=== PATIENT | female | born 1955 | race Caucasian/White ===

== ENCOUNTER 2017-09-17 21:27 | Observation (INO) | payer BC ==
[2017-09-17] MEDS ORDERED: 0.9 % SODIUM CHLORIDE 1,000 ML BAG IV ONE (21:37)
[2017-09-17] MEDS ORDERED: MORPHINE SULFATE 5 MG/ML PFS IVP ONE ×2 (21:38→22:58)
[2017-09-17] MEDS ORDERED: ONDANSETRON HCL IV 4 MG/2 ML VIAL IVP ONE (21:38)
[2017-09-17] MEDS ORDERED: ACETAMINOPHEN 1,000 MG/100 ML BTL IVPB ONE (21:43)
--- NOTE | 2017-09-17 21:44 | Emergency Department Record ---
History of Present Illness - General Chief Complaint: Abdominal Pain Stated Complaint: ABDOMINAL PAIN,CANT EAT Time Seen by Provider: 09/17/17 21:34 Source: Patient, EMS Mode of Arrival: Stretcher Limitations: No limitations - History of Present Illness Initial Comments: 62 yo female presents with abdominal pain that started yesterday morning. She pain was mild yesterday and she reports she just felt bloated. The pain has increased with nausea, vomiting and now it is primarily in the RLQ. No fever. TMAX of 99. She reports years ago she had exploratory surgery. She reports she still has her appendix and gallbladder. PCP is Alice Grant at [facility]. No hematuria or dysuria. MD Complaint: Abdominal pain -: Days(s) (2) Location: RLQ Radiation: RLQ Migration to: RLQ Severity: Severe Quality: Aching, Sharp, Stabbing Consistency: Constant Improves With: Nothing Associated Symptoms: Anorexia - Related Data Patient : No Allergies Allergy/AdvReac Type Severity Reaction Status Date / Time No Known Drug Allergies Allergy Unverified 04/30/17 10:39 Review of Systems Constitutional: Denies: Chills, Fever, Malaise, Weakness Eyes: Denies: Eye discharge ENT: Denies: Congestion, Throat pain Respiratory: Denies: Cough, Dyspnea, Hemoptysis, Stridor, Wheezes Cardiovascular: Denies: Chest pain, Palpitations, Syncope Endocrine: Denies: Fatigue, Polydipsia, Polyuria Gastrointestinal: Reports: As per HPI, Abdominal pain, Nausea, Vomiting. Denies : Diarrhea Genitourinary: Denies: Dysuria, Frequency, Urgency Musculoskeletal: Denies: Arthralgia, Back pain, Neck pain Skin: Denies: Bruising, Change in color, Rash Neurological: Denies: Headache, Numbness, Weakness Psychiatric: Denies: Anxiety Hematological/Lymphatic: Denies: Blood Clots, Easy bleeding, Easy bruising, Swollen glands Physical Exam - General General Appearance: Alert, Oriented x3, Cooperative, No acute distress Limitations: No limitations - Head Head exam: Atraumatic, Normocephalic, Normal inspection - Eye Eye exam: Normal appearance. negative: Conjunctival injection, Scleral icterus - ENT ENT exam: Normal exam, Mucous membranes moist Ear exam: Normal external inspection Nasal Exam: Normal inspection Mouth exam: Normal external inspection Teeth exam: Normal inspection Throat exam: Normal inspection - Neck Neck exam: Normal inspection, Full ROM. negative: Tenderness - Respiratory Respiratory exam: Normal lung sounds bilaterally. negative: Respiratory distress - Cardiovascular Cardiovascular Exam: Regular rate, Normal rhythm, Normal heart sounds - GI/Abdominal GI/Abdominal exam: Soft, Guarding, Tenderness (RLQ is tender with some guarding , the remainder of the abdomen remains very soft and non tender). negative: Distended - Rectal Rectal exam: Deferred - exam: Deferred - Extremities Extremities exam: Normal inspection, Full ROM, Normal capillary refill. negative: Tenderness - Back Back exam: Reports: Normal inspection, Full ROM. Denies: CVA tenderness (R), CVA tenderness (L), Muscle spasm, Tenderness - Neurological Neurological exam: Alert, Normal gait, Oriented X3 - Psychiatric Psychiatric exam: Normal affect, Normal mood - Skin Skin exam: Dry, Intact, Normal color, Warm Course - Reevaluation(s) Reevaluation #1: 09/17/17 21:44 Vitals reviewed. Temp 100.9 09/17/17 22:19 The CBC was reviewed. WBC is 11.5 09/17/17 22:37 The CMP was reviewed No acute changes except K is 2.9 09/18/17 00:20 CT is consistent with acute appendicitis. 09/18/17 00:26 I GABRIELA Paniagua The patient will be admitted to the hospital for hydration, IV antibiotics and plan for OR time. Medical Decision Making - Lab Data Result diagrams: 09/17/17 21:50 09/17/17 21:50 Disposition Disposition: Admit Clinical Impression: Abdominal pain Qualifiers: Abdominal location: right lower quadrant Qualified Code(s): R10.31 - Right lower quadrant pain Appendicitis Qualifiers: Appendicitis type: acute appendicitis Acute appendicitis type: unspecified acute appendicitis type Qualified Code(s): K35.80 - Unspecified acute appendicitis Disposition: Still a Patient at [facility] Decision to Admit: Admit from ER Decision to Admit Date: 09/18/17 Decision to Admit Time: 00:27 Condition: (2) Stable Forms: Patient Portal Access Time of Disposition: 00:25 Quality - Quality Measures Quality Measures: N/A - Blood Pressure Screening Does Patient Have Any of the Following: No Blood Pressure Classification: Pre-Hypertensive BP Reading Systolic Measurement: 142 Diastolic Measurement: 86 Screening for High Blood Pressure: < Pre-Hypertensive BP, F/U Documented > [ [id number]] Pre-Hypertensive Follow-up Interventions: Referral to alternative/primary care provider.
[2017-09-17 22:06] LABS: BASO % 0.1 % (0-6); EOS % 0.3 % (0-6); HEMATOCRIT 37.5 % (35.0-47.0); HEMOGLOBIN 12.6 gm/dl (11.6-16.0); LYMPH % 7.4 % (16-45); MEAN CELL VOLUME 92.8 fl (81-97); MEAN CORPUSCULAR HEMOGLOBIN 31.2 pg (27-33); MEAN CORPUSCULAR HGB CONC 33.6 g/dl (32-36); MEAN PLATELET VOLUME 10.2 fl (7.4-10.4); MONO % 4.8 % (0-9); PLATELET COUNT 272 K/uL (130-400); RED BLOOD COUNT 4.04 M/uL (3.80-5.40); RED CELL DISTRIBUTION WIDTH 12.9 % (11.5-14.5); WHITE BLOOD COUNT W/O DIFF 11.5 K/uL (4.2-12.2)
[2017-09-17 22:18] LABS: BLOOD UREA NITROGEN 24 mg/dL (8-23); CREATININE 0.8 mg/dL (0.5-0.9); EST GLOMERULAR FILTRATION RATE > 60 mL/min
[2017-09-17 22:19] LABS: TOTAL PROTEIN 7.7 g/dL (6.6-8.7)
[2017-09-17 22:21] LABS: GLUCOSE,RANDOM 154 mg/dL (74-109)
[2017-09-17 22:23] LABS: ALT/SGPT 20 U/L (<33)
[2017-09-17 22:24] LABS: ALBUMIN 4.1 g/dL (4.0-5.0); ALKALINE PHOSPHATASE 79 U/L (35-104); AST/SGOT 11 U/L (10.0-35.0); BILIRUBIN,DIRECT 0.2 mg/dL (0-0.3); LIPASE 42 U/L (13-60)
[2017-09-17] MEDS ORDERED: SOD CHLOR 0.9% WITH KCL 40MEQ 40 MEQ/1,000 ML IV.SOLN IV ONE (22:33)
[2017-09-17 23:44] LABS: URINE APPEARANCE CLEAR; URINE BILIRUBIN NEGATIVE (NEGATIVE); URINE BLOOD NEGATIVE (NEGATIVE); URINE COLOR YELLOW; URINE GLUCOSE (UA) NEGATIVE (NEGATIVE); URINE KETONE NEGATIVE (NEGATIVE); URINE LEUKOCYTE ESTERASE NEGATIVE (NEGATIVE); URINE NITRITE NEGATIVE (NEGATIVE); URINE PROTEIN NEGATIVE (NEGATIVE); URINE UROBILINOGEN 0.2 E.U./dL (0.20 - 1.00)
[2017-09-18] MEDS ORDERED: ERTAPENEM SODIUM 1 G in 0.9 % SODIUM CHLORIDE 100ML 100 ML IVPB ONE (00:20)
[2017-09-18] MEDS ORDERED: ONDANSETRON HCL IV 4 MG/2 ML VIAL IVP PRN (00:27)
[2017-09-18] MEDS ORDERED: ERTAPENEM SODIUM 1 G in 0.9 % SODIUM CHLORIDE 100ML 100 ML IVPB SCH (00:30)
[2017-09-18] MEDS: ACETAMINOPHEN 1,000 MG/100 ML BTL IVPB SCH ×4 (01:18→12:36)
[2017-09-18] MEDS: HYDROMORPHONE HCL 1 MG/ML SYRINGE IVP PRN ×5 (01:31→18:52)
[2017-09-18] MEDS: POTASSIUM CHLORIDE/D5-0.9%NACL 20 MEQ/1,000 ML BAG IV SCH ×3 (02:02→15:28)
[2017-09-18] MEDS ORDERED: HYDROMORPHONE HCL 1 MG/ML SYRINGE IVP ONE ×2 (02:45→07:04)
[2017-09-18 06:50] LABS: BLOOD UREA NITROGEN 19 mg/dL (8-23); CREATININE 0.8 mg/dL (0.5-0.9); EST GLOMERULAR FILTRATION RATE > 60 mL/min; GLUCOSE,RANDOM 149 mg/dL (74-109)
--- NOTE | 2017-09-18 09:17 | CT SCAN REPORT ---
EXAM: ABDOMEN AND PELVIS CT WITH IV CONTRAST HISTORY: ACUTE RIGHT LOWER QUADRANT AND LEFT LOWER QUADRANT PELVIC PAIN AND FEVER. TECHNIQUE: Contiguous axial images from the lung bases to the symphysis pubis were obtained after the uneventful intravenous administration of 100 ml of Omnipaque 300. Oral contrast was also utilized. Comparison: None. FINDINGS: A preliminary report was provided by Hunter Chavez. Linear density at the right base likely due to subsegmental atelectasis. Small hiatal hernia. The liver, spleen, kidneys, adrenals, pancreas and gallbladder are normal. Small duodenal diverticulum descending segment. The visualized loops of small and large bowel are of normal caliber. Dilated inflamed appendix in the right lower quadrant which is fluid filled measuring up to 12 mm in diameter. Adjacent inflammatory fat stranding. No abscess or obstruction. Mild to moderate colonic diverticulosis involving the descending colon. The uterus is present. Right ovarian cyst measuring 4.7 cm. No adenopathy. Moderate aortic calcification with no aneurysm. No lytic or blastic osseous lesions. IMPRESSION: 1. ACUTE APPENDICITIS. NO ABSCESS OR OBSTRUCTION. 2. MILD TO MODERATE COLONIC DIVERTICULOSIS. 3. 4.7 CM UNILOCULAR RIGHT OVARIAN CYST. THIS COULD RELATE TO A POST MENOPAUSAL CYST WHICH CAN BE SEEN IN 14% OF THE POPULATION ALTHOUGH WOULD RECOMMEND A ONE YEAR FOLLOW-UP STUDY TO EXCLUDE PROGRESSION IN SIZE. 4. OTHER INCIDENTAL FINDINGS ABOVE. JOB NUMBER: [id number] [facility]
[2017-09-18] MEDS ORDERED: FAMOTIDINE 20MG TABLET PO ONE (15:00)
[2017-09-18] MEDS ORDERED: MECLIZINE 25 MG TABLET PO ONE (15:00)
[2017-09-18] MEDS ORDERED: METOCLOPRAMIDE 10 MG TABLET PO ONE (15:00)
[2017-09-18] MEDS ORDERED: RINGERS SOLUTION,LACTATED 1,000 ML IV PRN (15:21)
[2017-09-18] MEDS ORDERED: SUCCINYLCHOLINE 20 MG/ML 10ML IVP ONE (19:42)
[2017-09-18] MEDS ORDERED: GLYCOPYRROLATE 0.2 MG/ML ML IV ONE (19:42)
[2017-09-18] MEDS ORDERED: FENTANYL PF 100MCG/2ML VIAL IV ONE (19:42)
[2017-09-18] MEDS ORDERED: ONDANSETRON HCL IV 4 MG/2 ML VIAL IVP ONE (19:42)
[2017-09-18] MEDS ORDERED: SEVOFLURANE 250 ML INH ONE (19:42)
[2017-09-18] MEDS ORDERED: BUPIVACAINE 0.75% W/EPI MPF 30ML VIAL IVP ONE (19:42)
[2017-09-18] MEDS ORDERED: KETOROLAC 30 MG/ML VIAL IVP ONE (19:42)
[2017-09-18] MEDS ORDERED: ROCURONIUM BROMIDE 50MG/5ML VIAL IV ONE (19:42)
[2017-09-18] MEDS ORDERED: PROPOFOL 10 MG/ML VIAL IV ONE (19:42)
[2017-09-18] MEDS ORDERED: LIDOCAINE 2% MDV (20MG/ML) 20ML VIAL IV ONE (19:42)
[2017-09-18] MEDS ORDERED: NEOSTIGMINE 1 MG/1 ML,10ML VIAL IV ONE (19:42)
--- NOTE | 2017-09-22 09:20 | Operative Note ---
DATE OF SURGERY: 09/18/2017 Surgeon: Davian Chand DO PREOPERATIVE DIAGNOSIS: Acute appendicitis. POSTOPERATIVE DIAGNOSIS: Ruptured appendix with abscess. OPERATION: Laparoscopic appendectomy with drain placement. Indication: The patient is a 62-year-old female who was admitted to the hospital with ongoing abdominal pain. She stated that this has been going on for 3-4 days. This did settle in the right lower quadrant. She was seen at [facility] ER where full workup was done. This did show a mild leukocytosis of 11,000. She had normal vital signs and the CT scan showing findings consistent with uncomplicated appendicitis. We did discuss appendectomy; risks, benefits, and alternatives. Risks include but are not limited to bleeding, infection, injury to underlying visceral structures, need for drain placement. She understood this fully. Thereafter, consent was signed and questions answered. PROCEDURE: She was taken to the operating room and placed in the supine position. General anesthesia was administered per department of anesthesia. The patient's left arm was tucked to the side. Abdomen was prepped and draped in the usual fashion. At this time, adequate timeout was performed. She did receive preoperative antibiotics. At this time, the infraumbilical region was anesthetized with a total of 3 mL of 0.25% Sensorcaine with epinephrine. A 2 cm infraumbilical incision was made. This was carried down bluntly to the anterior rectus fascia. This was incised. Santiago clamps were placed on the fascial edges and brought up into the wound. Stay sutures of 0 Vicryl placed. Posterior rectus sheath was identified and incised. The peritoneal cavity was entered bluntly. At this time, a 10 mm blunt Merly port was placed. Adequate pneumoperitoneum established. Given the patient's obesity, the standard 10 mm Merly was not long enough. Therefore, I did have to obtain a bariatric balloon port to hold the pneumo. At this time, additional 5 mm subcostal and 5 mm suprapubic ports were placed. General exam was done. The patient had a large pyogenic membrane throughout the patient's right mid abdomen and pelvis. Moving her appendix medially, there was a large abscess cavity encountered. This was all suctioned free. The rupture was right at the base of the appendix. Purulent fluid was suctioned free. The appendix was then grasped and lifted anteriorly. The mesoappendix was taken down serially to the base with the Isma harmonic. At this time, the Endo-LON 45-mm blue load was obtained. We did transect the base and part of the cecum proximal to the ruptured site. This was then placed in an EndoCatch bag and brought out infraumbilically. At this time, 2 liters of normal saline was used to irrigate the patient's pelvis and right mid abdomen. The purulent fluid was aspirated until clear. At this time, a #10 flat Roni-Yung drain was then placed along the right pericolic gutter into the pelvis and brought out through the right subcostal 5 mm port. The patient was leveled out. The rest of the exam appeared grossly normal. Both lobes of the liver were smooth and glistening. Uterus was identified and found to be normal. External exam of the large and small bowel was normal with the exception of the pyogenic membrane on the right. At this time, pneumoperitoneum released. All ports removed. The fascia in the navel was closed with 0 Vicryl in a [id number] fashion. The drain was sutured in with 3-0 nylon. Two port sites were closed with 4-0 Vicryl. She was taken to the recovery room in stable condition. FINDINGS ON SURGERY: Ruptured appendicitis with abscess and large pyogenic membrane. The patient will be admitted to the hospital with continued IV antibiotics. STEVE
== END 2017-09-18 19:43 | disposition short-term general hospital (02) ==
LOC: ER 21:27 → MEDSURG 09-18 01:10
PROVIDERS: ADMIT Internal Medicine; ATTEND Surgery
DX: K35.2 Acute appendicitis with generalized peritonitis (principal); E78.00 Pure hypercholesterolemia, unspecified
CPT/HCPCS: 00840; 93041; 99285 ×2; 96376; 96374; 96365; 96366; 96375; 96368; 83690; 80076; 80048 ×2; 81003; 85027; 74177; 44970; G0378; Q9967; J1335; J1885; J2405 ×2; J3010; J2270; J1170; J3490; J0330; J2710; J3480; J7030; J7120

== ENCOUNTER 2018-07-03 09:25 | Day surgery (SDC) | payer BC ==
[2018-07-03] MEDS ORDERED: PROPOFOL 10 MG/ML VIAL IV ONE (09:26)
[2018-07-03] MEDS ORDERED: LIDOCAINE 2% MDV (20MG/ML) 20ML VIAL IV ONE (09:26)
--- NOTE | 2018-07-06 09:30 | Operative Note ---
DATE OF SURGERY: SURGEON: Silva Jaramillo MD OPERATION: COLONOSCOPY. INDICATIONS: This is a 63-year-old female with average risk for colorectal cancer who presented for screening colonoscopy. POSTOPERATIVE DIAGNOSES: 1. A 3 mm descending colon polyp that was removed by cold biopsy forceps. 2. Left-sided colonic diverticulosis. ANESTHESIA: Sedation is per Anesthesia. Pulse oximetry was monitored throughout the procedure to maintain O2 saturation of 90% or greater. Supplemental oxygen was administered via nasal cannula. Cardiac and vital signs were monitored throughout the duration of the procedure, and they were stable. The procedure of colonoscopy and risks and alternatives of the procedure, including the risk of bleeding and perforation, among others, were explained to the patient who voiced understanding and agreed to have the procedure done. Physical examination was performed, and the patient was found stable for sedation. PROCEDURE: The patient was placed in the left lateral position. Sedation was initiated. A digital rectal exam was performed and showed some mild external hemorrhoids with no palpable rectal masses. An Olympus PCF-180AL colonoscope was then inserted into the rectum under direct visualization. It was advanced to the cecum without difficulty. The ileocecal valve and appendiceal orifice were identified and photographed. The colonic mucosa was carefully examined upon introduction of the colonoscope. There were scattered diverticula noted in the sigmoid and descending colon. In the descending colon was also a 3 mm sessile polyp that was noted and was removed by cold biopsy forceps. There were no other lesions noted. The ileocecal valve was intubated and terminal ileal mucosa was inspected for about 10 cm and it appeared normal. The colonoscope was then withdrawn while carefully examining the colonic mucosal surfaces. No other lesions were noted. In the rectum, retroflexion was performed and grade 1 internal hemorrhoids were noted. The colonoscope was then withdrawn and the procedure was terminated. The patient tolerated the procedure well without any immediate complications. The patient remained with stable vital signs and was transferred to the recovery room. RECOMMENDATIONS: 1. The patient should be on a high-fiber diet. 2. The patient is to have a repeat colonoscopy for surveillance in 5 or 10 years depending on the histology of the polyps. Thank you for allowing me to participate in the care of your patient. CC: FÉLIX Brown
== END 2018-07-03 12:10 | disposition home or self-care (01) ==
LOC: HOP 09:25
PROVIDERS: ATTEND Internal Medicine Gastroenterology
DX: Z12.11 Encounter for screening for malignant neoplasm of colon (principal); D12.4 Benign neoplasm of descending colon; K57.30 Diverticulosis of large intestine without perforation or abscess without bleeding; I10 Essential (primary) hypertension; E78.00 Pure hypercholesterolemia, unspecified